=== PATIENT | female | born 1940 | race Caucasian/White ===

== ENCOUNTER → 2017-04-05 | Outpatient (CLI) | payer MEDICARE, OTHER ==
[~2017-04-05] MED LIST: ASPI81EC PO; CHOL10002 PO; CIPR500 PO; CYAN100T2 PO; Co Q-1010 MG PO; FAMO20 PO; Flomax0.4 MG PO; Ginkgo Biloba40 MG PO; HYDR1TAB94 PO; IBAN2.5 PO; LEVSOD50; LEVSOD50 PO; LEVSOD88 PO; LOVA20 PO; LOVA40 PO; METF500C PO; Micro-K10 MEQ PO; NEBI10 PO; NEBI5; NEBI5 PO; Norco 10-325 T1 EACH PO; OXYACE5T PO; Omeprazole20 M1 PO; PHENA200 PO; POTA10T PO; Percocet 5-3251 EACH PO; RISE35; SUCR1 PO; ZOLP5 PO; [UNRECOGNIZED DRUG - REMARK]
== END ==
LOC: LAB SHORT 08:13 → PLD 08:13
DX: D22.71 Melanocytic nevi of right lower limb, including hip (principal)
CPT/HCPCS: 88305

== ENCOUNTER → 2017-04-14 | Outpatient (CLI) | payer MEDICARE, OTHER | LOC: LAB SHORT 08:26 → PLD 08:26 | DX: D22.71 Melanocytic nevi of right lower limb, including hip (principal) | CPT/HCPCS: 88305 ==

== ENCOUNTER → 2018-04-13 | Outpatient (CLI) | payer MEDICARE, OTHER | END | disposition home or self-care (01) | LOC: LAB SHORT 11:28 → PLD 11:28 | DX: D48.5 Neoplasm of uncertain behavior of skin (principal) | CPT/HCPCS: 88305 ==

== ENCOUNTER 2018-08-29 07:09 | Day surgery (SDC) | payer MEDICARE, OTHER ==
[~2018-08-29] VITALS: Ht 154.9 cm; Wt 66.3 kg
[2018-08-29] MEDS ORDERED: Norco 10-325 T1 EACH PO (07:41)
--- NOTE | 2018-08-29 09:02 | NUR ---
08/29/18 0902 Rebecca Narayanan ATTEMPT ONLY WITH 50 PALOMO, 48 PALOMO USED.
== END 2018-08-29 09:25 | disposition home or self-care (01) ==
LOC: ORSCSDS 07:09
PROVIDERS: Internal Medicine Gastroenterology
PROC: 0DB58ZX Excision of Esophagus, Via Natural or Artificial Opening Endoscopic, Diagnostic (ICD-10-PCS; principal; 2018-08-29 08:45)
PROC: 0D758ZZ Dilation of Esophagus, Via Natural or Artificial Opening Endoscopic (ICD-10-PCS; principal; 2018-08-29 08:45)
DX: R13.10 Dysphagia, unspecified (principal); K21.9 Gastro-esophageal reflux disease without esophagitis; K44.9 Diaphragmatic hernia without obstruction or gangrene; K29.70 Gastritis, unspecified, without bleeding; E05.90 Thyrotoxicosis, unspecified without thyrotoxic crisis or storm; I48.91 Unspecified atrial fibrillation; E78.00 Pure hypercholesterolemia, unspecified; G47.30 Sleep apnea, unspecified; R73.03 Prediabetes; I10 Essential (primary) hypertension; E03.9 Hypothyroidism, unspecified; Z79.899 Other long term (current) drug therapy
CPT/HCPCS: 88305; 88342; J0330; J0461; J2405; J2704; J7120

== ENCOUNTER 2018-10-24 07:30 | Day surgery (SDC) | payer MEDICARE, OTHER | END 2018-10-24 23:00 | disposition home or self-care (01) | LOC: WOUND 07:30 | DX: S81.812D Laceration without foreign body, left lower leg, subsequent encounter (principal); I10 Essential (primary) hypertension; E03.9 Hypothyroidism, unspecified; E78.5 Hyperlipidemia, unspecified; D64.9 Anemia, unspecified; G47.33 Obstructive sleep apnea (adult) (pediatric); J45.909 Unspecified asthma, uncomplicated; W07.XXXA Fall from chair, initial encounter | CPT/HCPCS: G0463 ==

== ENCOUNTER 2018-10-31 00:22 | Day surgery (SDC) | payer MEDICARE, OTHER | END 2018-10-31 22:45 | disposition home or self-care (01) | LOC: WOUND 00:22 | DX: S81.812A Laceration without foreign body, left lower leg, initial encounter (principal); E03.9 Hypothyroidism, unspecified; E78.5 Hyperlipidemia, unspecified; G47.33 Obstructive sleep apnea (adult) (pediatric); I10 Essential (primary) hypertension; J45.909 Unspecified asthma, uncomplicated; M85.80 Other specified disorders of bone density and structure, unspecified site ==

== ENCOUNTER 2018-11-07 00:22 | Day surgery (SDC) | payer MEDICARE, OTHER | END 2018-11-07 23:25 | disposition home or self-care (01) | LOC: WOUND 00:22 | DX: T81.33XA Disruption of traumatic injury wound repair, initial encounter (principal); I10 Essential (primary) hypertension; G47.33 Obstructive sleep apnea (adult) (pediatric); X58.XXXA Exposure to other specified factors, initial encounter ==

== ENCOUNTER 2018-11-14 10:55 | Day surgery (SDC) | payer MEDICARE, OTHER | END 2018-11-14 22:47 | disposition home or self-care (01) | LOC: WOUND 10:55 | DX: S81.812A Laceration without foreign body, left lower leg, initial encounter (principal); I10 Essential (primary) hypertension; G47.33 Obstructive sleep apnea (adult) (pediatric) ==

== ENCOUNTER 2018-11-21 00:10 | Day surgery (SDC) | payer MEDICARE, OTHER | END 2018-11-21 23:02 | disposition home or self-care (01) | LOC: WOUND 00:10 | DX: S81.812A Laceration without foreign body, left lower leg, initial encounter (principal); E03.9 Hypothyroidism, unspecified; E55.9 Vitamin D deficiency, unspecified; E78.5 Hyperlipidemia, unspecified; I10 Essential (primary) hypertension ==

== ENCOUNTER 2018-11-24 00:42 | Day surgery (SDC) | payer MEDICARE, OTHER | END 2018-11-25 00:11 | disposition home or self-care (01) | LOC: WOUND 00:42 | DX: S81.812A Laceration without foreign body, left lower leg, initial encounter (principal); E03.9 Hypothyroidism, unspecified; E78.5 Hyperlipidemia, unspecified; G47.33 Obstructive sleep apnea (adult) (pediatric); J45.909 Unspecified asthma, uncomplicated; E53.8 Deficiency of other specified B group vitamins ==

== ENCOUNTER 2018-11-28 00:42 | Day surgery (SDC) | payer MEDICARE, OTHER | END 2018-11-28 22:41 | disposition home or self-care (01) | LOC: WOUND 00:42 | DX: S81.812A Laceration without foreign body, left lower leg, initial encounter (principal); E03.9 Hypothyroidism, unspecified; E78.5 Hyperlipidemia, unspecified; E59 Dietary selenium deficiency; E55.9 Vitamin D deficiency, unspecified; G47.33 Obstructive sleep apnea (adult) (pediatric); I10 Essential (primary) hypertension; J45.909 Unspecified asthma, uncomplicated ==

== ENCOUNTER 2018-11-29 11:20 | Day surgery (SDC) | payer MEDICARE, OTHER | END 2018-11-29 22:42 | disposition home or self-care (01) | LOC: WOUND 11:20 | DX: T81.33XA Disruption of traumatic injury wound repair, initial encounter (principal); S81.812D Laceration without foreign body, left lower leg, subsequent encounter; I10 Essential (primary) hypertension; G47.33 Obstructive sleep apnea (adult) (pediatric) ==

== ENCOUNTER 2018-12-01 02:23 | Day surgery (SDC) | payer MEDICARE, OTHER | END 2018-12-01 22:37 | disposition home or self-care (01) | LOC: WOUND 02:23 | DX: S81.812A Laceration without foreign body, left lower leg, initial encounter (principal); I10 Essential (primary) hypertension ==

== ENCOUNTER 2018-12-04 00:29 | Day surgery (SDC) | payer MEDICARE, OTHER | END 2018-12-04 22:50 | disposition home or self-care (01) | LOC: WOUND 00:29 | DX: S81.812A Laceration without foreign body, left lower leg, initial encounter (principal); I10 Essential (primary) hypertension; X58.XXXA Exposure to other specified factors, initial encounter ==

== ENCOUNTER 2018-12-06 07:51 | Day surgery (SDC) | payer MEDICARE, OTHER | END 2018-12-06 23:01 | disposition home or self-care (01) | LOC: WOUND 07:51 | DX: T81.33XA Disruption of traumatic injury wound repair, initial encounter (principal); I10 Essential (primary) hypertension ==

== ENCOUNTER 2018-12-08 10:03 | Day surgery (SDC) | payer MEDICARE, OTHER | END 2018-12-08 22:40 | disposition home or self-care (01) | LOC: WOUND 10:03 | DX: T81.33XA Disruption of traumatic injury wound repair, initial encounter (principal); I10 Essential (primary) hypertension ==

== ENCOUNTER 2018-12-11 00:20 | Day surgery (SDC) | payer MEDICARE, OTHER | END 2018-12-11 22:51 | disposition home or self-care (01) | LOC: WOUND 00:20 | DX: T81.33XA Disruption of traumatic injury wound repair, initial encounter (principal); I10 Essential (primary) hypertension ==

== ENCOUNTER 2018-12-13 07:55 | Day surgery (SDC) | payer OTHER, MEDICARE | END 2018-12-13 22:49 | disposition home or self-care (01) | LOC: WOUND 07:55 | DX: T81.33XA Disruption of traumatic injury wound repair, initial encounter (principal); S81.812D Laceration without foreign body, left lower leg, subsequent encounter; I10 Essential (primary) hypertension ==

== ENCOUNTER 2018-12-15 00:47 | Day surgery (SDC) | payer MEDICARE, OTHER | END 2018-12-15 23:23 | disposition home or self-care (01) | LOC: WOUND 00:47 | DX: S81.812D Laceration without foreign body, left lower leg, subsequent encounter (principal); I10 Essential (primary) hypertension; G47.33 Obstructive sleep apnea (adult) (pediatric); J45.909 Unspecified asthma, uncomplicated; E78.5 Hyperlipidemia, unspecified ==

== ENCOUNTER 2018-12-18 11:16 | Day surgery (SDC) | payer MEDICARE, OTHER | END 2018-12-18 23:02 | disposition home or self-care (01) | LOC: WOUND 11:16 | DX: S81.812A Laceration without foreign body, left lower leg, initial encounter (principal); E03.9 Hypothyroidism, unspecified; G47.33 Obstructive sleep apnea (adult) (pediatric); I10 Essential (primary) hypertension; M85.80 Other specified disorders of bone density and structure, unspecified site; J45.909 Unspecified asthma, uncomplicated ==

== ENCOUNTER 2018-12-20 00:11 | Day surgery (SDC) | payer OTHER, MEDICARE | END 2018-12-20 22:39 | disposition home or self-care (01) | LOC: WOUND 00:11 | DX: T81.31XA Disruption of external operation (surgical) wound, not elsewhere classified, initial encounter (principal); S81.812D Laceration without foreign body, left lower leg, subsequent encounter; I10 Essential (primary) hypertension ==

== ENCOUNTER 2018-12-22 01:18 | Day surgery (SDC) | payer MEDICARE, OTHER | END 2018-12-22 22:57 | disposition home or self-care (01) | LOC: WOUND 01:18 | DX: T81.33XA Disruption of traumatic injury wound repair, initial encounter (principal); I10 Essential (primary) hypertension ==

== ENCOUNTER 2018-12-25 00:26 | Day surgery (SDC) | payer MEDICARE, OTHER | END 2018-12-25 23:00 | disposition home or self-care (01) | LOC: WOUND 00:26 | DX: T81.33XA Disruption of traumatic injury wound repair, initial encounter (principal); S81.812D Laceration without foreign body, left lower leg, subsequent encounter; I10 Essential (primary) hypertension ==

== ENCOUNTER 2018-12-27 00:14 | Day surgery (SDC) | payer MEDICARE, OTHER | END 2018-12-27 23:05 | disposition home or self-care (01) | LOC: WOUND 00:14 | DX: T81.33XA Disruption of traumatic injury wound repair, initial encounter (principal); S81.812D Laceration without foreign body, left lower leg, subsequent encounter; I10 Essential (primary) hypertension | CPT/HCPCS: G0463 ==

== ENCOUNTER 2019-01-01 08:22 | Day surgery (SDC) | payer MEDICARE, OTHER | END 2019-01-01 22:41 | disposition home or self-care (01) | LOC: WOUND 08:22 | DX: S81.812D Laceration without foreign body, left lower leg, subsequent encounter (principal); E03.9 Hypothyroidism, unspecified; E78.5 Hyperlipidemia, unspecified; G47.33 Obstructive sleep apnea (adult) (pediatric); I10 Essential (primary) hypertension; J45.909 Unspecified asthma, uncomplicated | CPT/HCPCS: G0463 ==

== ENCOUNTER 2019-01-05 00:08 | Day surgery (SDC) | payer MEDICARE, OTHER | END 2019-01-05 23:46 | disposition home or self-care (01) | LOC: WOUND 00:08 | DX: S81.812D Laceration without foreign body, left lower leg, subsequent encounter (principal); E03.9 Hypothyroidism, unspecified; E78.5 Hyperlipidemia, unspecified; G47.33 Obstructive sleep apnea (adult) (pediatric); E55.9 Vitamin D deficiency, unspecified; E53.8 Deficiency of other specified B group vitamins; I10 Essential (primary) hypertension; J45.909 Unspecified asthma, uncomplicated; Q76.2 Congenital spondylolisthesis; L30.9 Dermatitis, unspecified | CPT/HCPCS: G0463 ==

== ENCOUNTER 2019-01-08 00:27 | Day surgery (SDC) | payer MEDICARE, OTHER | END 2019-01-08 23:18 | disposition home or self-care (01) | LOC: WOUND 00:27 | DX: S81.812D Laceration without foreign body, left lower leg, subsequent encounter (principal); L30.9 Dermatitis, unspecified; E03.9 Hypothyroidism, unspecified; E78.5 Hyperlipidemia, unspecified; G47.33 Obstructive sleep apnea (adult) (pediatric); I10 Essential (primary) hypertension; J45.909 Unspecified asthma, uncomplicated | CPT/HCPCS: G0463 ==

== ENCOUNTER 2019-01-10 07:59 | Day surgery (SDC) | payer MEDICARE, OTHER | END 2019-01-10 22:39 | disposition home or self-care (01) | LOC: WOUND 07:59 | DX: T81.33XA Disruption of traumatic injury wound repair, initial encounter (principal); S81.812D Laceration without foreign body, left lower leg, subsequent encounter; I10 Essential (primary) hypertension | CPT/HCPCS: G0463 ==

== ENCOUNTER 2019-01-17 00:18 | Day surgery (SDC) | payer MEDICARE, OTHER | END 2019-01-17 23:01 | disposition home or self-care (01) | LOC: WOUND 00:18 | DX: T81.33XA Disruption of traumatic injury wound repair, initial encounter (principal); S81.812D Laceration without foreign body, left lower leg, subsequent encounter; I10 Essential (primary) hypertension | CPT/HCPCS: G0463 ==

== ENCOUNTER 2019-01-24 00:34 | Day surgery (SDC) | payer MEDICARE, OTHER | END 2019-01-24 22:38 | disposition home or self-care (01) | LOC: WOUND 00:34 | DX: S81.812D Laceration without foreign body, left lower leg, subsequent encounter (principal); I10 Essential (primary) hypertension; J45.909 Unspecified asthma, uncomplicated; G47.33 Obstructive sleep apnea (adult) (pediatric); E78.5 Hyperlipidemia, unspecified; E03.9 Hypothyroidism, unspecified; Z79.899 Other long term (current) drug therapy | CPT/HCPCS: G0463 ==

== ENCOUNTER → 2019-02-06 | Outpatient (CLI) | payer MEDICARE, OTHER ==
[2019-02-07 13:07] LABS: HPV 16 Negative (Negative); HPV 18 Negative (Negative); HPV OTHER HR TYPES Negative (Negative)
== END | disposition home or self-care (01) ==
LOC: LAB SHORT 10:35 → LAB 10:35
PROVIDERS: Obstetrics & Gynecology Gynecology
DX: Z91.89 Other specified personal risk factors, not elsewhere classified (principal)
CPT/HCPCS: 87624; G0123

== ENCOUNTER 2019-05-23 11:06 | Emergency (ER) | payer MEDICARE, OTHER ==
[~2019-05-23] VITALS: Ht 154.9 cm; Wt 65.8 kg
[2019-05-23] MEDS ORDERED: LEVSOD50 PO (11:42)
[2019-05-23] MEDS ORDERED: OMEP20ER PO (11:42)
[2019-05-23] MEDS ORDERED: Norco 10-325 T1 EACH (11:42)
[2019-05-23] MEDS ORDERED: LOVA40 PO (11:42)
[2019-05-23] MEDS ORDERED: POTA10T PO (11:42)
[2019-05-23] MEDS ORDERED: NEBI10 PO (11:42)
== END 2019-05-23 12:25 | disposition home or self-care (01) ==
LOC: ER 11:06
DX: S81.812A Laceration without foreign body, left lower leg, initial encounter (principal); E11.9 Type 2 diabetes mellitus without complications; E03.9 Hypothyroidism, unspecified; E78.5 Hyperlipidemia, unspecified; K21.9 Gastro-esophageal reflux disease without esophagitis; M41.9 Scoliosis, unspecified; G47.30 Sleep apnea, unspecified; Z88.0 Allergy status to penicillin; Z88.2 Allergy status to sulfonamides; Z88.8 Allergy status to other drugs, medicaments and biological substances; W20.8XXA Other cause of strike by thrown, projected or falling object, initial encounter
CPT/HCPCS: 99282

== ENCOUNTER → 2019-05-25 | Outpatient (CLI) | payer MEDICARE, OTHER ==
[~2019-05-25] MED LIST changes: +Norco 10-325 T1 EACH; +OMEP20ER PO
== END ==
LOC: LAB EV 09:51 → LAB SHORT 09:51
DX: T14.8XXA Other injury of unspecified body region, initial encounter (principal)
CPT/HCPCS: 87070; 87205

== ENCOUNTER 2019-05-28 10:48 | Day surgery (SDC) | payer MEDICARE, OTHER | END 2019-05-28 22:44 | disposition home or self-care (01) | LOC: WOUND 10:48 | DX: S81.802A Unspecified open wound, left lower leg, initial encounter (principal); E03.9 Hypothyroidism, unspecified; E78.5 Hyperlipidemia, unspecified; I10 Essential (primary) hypertension; G47.33 Obstructive sleep apnea (adult) (pediatric); J45.909 Unspecified asthma, uncomplicated; Q76.2 Congenital spondylolisthesis; X58.XXXA Exposure to other specified factors, initial encounter; Z88.2 Allergy status to sulfonamides; Z88.0 Allergy status to penicillin; Z88.8 Allergy status to other drugs, medicaments and biological substances; Z88.1 Allergy status to other antibiotic agents | CPT/HCPCS: G0463 ==

== ENCOUNTER 2019-06-05 00:12 | Day surgery (SDC) | payer MEDICARE, OTHER | END 2019-06-05 22:48 | disposition home or self-care (01) | LOC: WOUND 00:12 | DX: S81.802D Unspecified open wound, left lower leg, subsequent encounter (principal); E03.9 Hypothyroidism, unspecified; E78.5 Hyperlipidemia, unspecified; G47.33 Obstructive sleep apnea (adult) (pediatric); I10 Essential (primary) hypertension; J45.909 Unspecified asthma, uncomplicated; Z79.899 Other long term (current) drug therapy ==

== ENCOUNTER 2019-06-12 00:25 | Day surgery (SDC) | payer MEDICARE, OTHER | END 2019-06-12 22:47 | disposition home or self-care (01) | LOC: WOUND 00:25 | DX: S81.812D Laceration without foreign body, left lower leg, subsequent encounter (principal); I10 Essential (primary) hypertension ==

== ENCOUNTER 2019-06-26 00:06 | Day surgery (SDC) | payer MEDICARE, OTHER | END 2019-06-26 22:48 | disposition home or self-care (01) | LOC: WOUND 00:06 | DX: S81.802D Unspecified open wound, left lower leg, subsequent encounter (principal); I10 Essential (primary) hypertension; G47.33 Obstructive sleep apnea (adult) (pediatric); J45.909 Unspecified asthma, uncomplicated | CPT/HCPCS: G0463 ==

== ENCOUNTER → 2019-10-16 | Outpatient (CLI) | payer MEDICARE, OTHER ==
[~2019-10-16] MED LIST changes: +Aspir 8181 MG PO; +Cipro500 MG PO; +DICLOFENAC SOD100 G1 TOP; +HYDACE10B PO; +LEVSOD75 PO; +LOSA25; +LOSA25 PO; +Pyridium100 MG PO
[2019-10-16 15:57] LABS: Source, Urine Clean Catch
[2019-10-16 16:03] LABS: Appearance, Urine Clear (Clear); Bilirubin, Urine Neg (Neg); Blood, Urine Neg (Neg); Color, Urine Yellow (P-Yellow); Glucose Qualitative, Urine Neg (Normal); Ketones, Urine Neg (Neg); Leukocyte Esterase, Urine Neg (Neg); Nitrite, Urine Neg (Neg); Protein, Urine Neg (Neg); Urobilinogen, Urine NORM (Normal); pH, Urine 6.5 (5.0-8.0)
== END | disposition home or self-care (01) ==
LOC: LAB SHORT 15:25 → LAB EV 15:25
PROVIDERS: Physician Assistant
DX: R30.9 Painful micturition, unspecified (principal)
CPT/HCPCS: 81003

== ENCOUNTER 2019-11-08 11:09 | Day surgery (SDC) | payer MEDICARE, OTHER ==
[~2019-11-08] VITALS: Ht 154.9 cm; Wt 62.0 kg
[~2019-11-08 11:09] MED LIST changes: -Aspir 8181 MG PO
[2019-11-09 04:28] LABS: BASOPHILS ABSOLUTE AUTO 0.03 K/mm3 (0.00-0.23); BASOPHILS PERCENT AUTO 0 % (0-2); EOSINOPHILS ABSOLUTE AUTO 0.15 K/mm3 (0.00-0.68); EOSINOPHILS PERCENT AUTO 2 % (0-6); Hematocrit 26.1 % (33.0-51.0); Hemoglobin 8.4 g/dL (11.5-16.0); IMMATURE GRAN ABSOLUTE AUTO 0.02 K/mm3 (0.00-0.10); IMMATURE GRAN PERCENT AUTO 0 % (0-1); LYMPHOCYTES ABSOLUTE AUTO 1.31 K/mm3 (0.84-5.20); LYMPHOCYTES PERCENT AUTO 13 % (21-46); MONOCYTES ABSOLUTE AUTO 0.73 K/mm3 (0.16-1.47); MONOCYTES PERCENT AUTO 7 % (4-13); Mean Corpuscular HGB 29.8 pg (26.0-34.0); Mean Corpuscular HGB Conc 32.2 g/dL (31.5-36.5); Mean Corpuscular Volume 93 fL (80-100); NEUTROPHILS ABSOLUTE AUTO 7.75 K/mm3 (1.96-9.15); NEUTROPHILS PERCENT AUTO 78 % (41-73); Platelet Count 243 K/mm3 (150-400); RDW Coefficient Variation 14.6 % (11.7-14.2); RDW Standard Deviation 49.7 fL (35.1-46.3); Red Blood Cell Count 2.82 M/mm3 (3.80-5.20); White Blood Cell Count 9.99 K/mm3 (4.00-11.30)
[2019-11-09 04:53] LABS: Anion Gap 4 mmol/L (6-16); Blood Urea Nitrogen 12 mg/dL (8-24); Bun/Creatinine Ratio 14.5 (12.0-20.0); CO2, Blood 25 mmol/L (21-32); Calcium, Blood 7.5 mg/dL (8.5-10.1); Chloride, Blood 105 mmol/L (98-108); Creatinine, Blood 0.83 mg/dL (0.40-1.00); Glomerular Filtration Rate >60 (60-); Glucose, Blood 92 mg/dL (70-99); Magnesium, Blood 1.8 mg/dL (1.6-2.4); Sodium, Blood 134 mmol/L (136-145)
[2019-11-09] MEDS ORDERED: Percocet 5-3251 EACH PO (10:23)
[2019-11-09] MEDS ORDERED: Aspir 8181 MG PO (10:24)
== END 2019-11-09 11:30 | disposition home or self-care (01) ==
LOC: ORSCMMR 11:09 → PRE IP 12:30 → EDSTATUS 12:30 → SURS 15:50 → ORSCMMR 11-09 11:30
PROVIDERS: Orthopaedic Surgery
DX: M87.251 Osteonecrosis due to previous trauma, right femur (principal); M16.11 Unilateral primary osteoarthritis, right hip; K21.9 Gastro-esophageal reflux disease without esophagitis; E78.00 Pure hypercholesterolemia, unspecified; E05.90 Thyrotoxicosis, unspecified without thyrotoxic crisis or storm; Z79.899 Other long term (current) drug therapy; Z79.891 Long term (current) use of opiate analgesic; Z88.0 Allergy status to penicillin; Z88.2 Allergy status to sulfonamides; Z88.8 Allergy status to other drugs, medicaments and biological substances; Z88.1 Allergy status to other antibiotic agents
CPT/HCPCS: 36415; 72170; 80048; 83735; 85025; 88300; 94762; 97110; 97116; 97161; A9270-GY; C1713; C1776; J0171; J0735; J1170; J1885; J2250; J2370; J2704; J2795; J3010; J7030; J7120

== ENCOUNTER 2019-12-25 10:03 | Emergency (ER) | payer MEDICARE, OTHER ==
[~2019-12-25] VITALS: Ht 154.9 cm; Wt 61.2 kg
[~2019-12-25 10:03] MED LIST changes: +Aspir 8181 MG PO
== END 2019-12-25 11:12 | disposition home or self-care (01) ==
LOC: ER 10:03
DX: S81.811A Laceration without foreign body, right lower leg, initial encounter (principal); E11.9 Type 2 diabetes mellitus without complications; K21.9 Gastro-esophageal reflux disease without esophagitis; E03.9 Hypothyroidism, unspecified; E78.5 Hyperlipidemia, unspecified; Z88.2 Allergy status to sulfonamides; Z88.0 Allergy status to penicillin; Z79.899 Other long term (current) drug therapy; Z79.82 Long term (current) use of aspirin; V48.4XXA Person boarding or alighting a car injured in noncollision transport accident, initial encounter
CPT/HCPCS: 99282

== ENCOUNTER → 2019-12-27 | Outpatient (CLI) | payer MEDICARE, OTHER | END | disposition home or self-care (01) | LOC: LAB EV 13:39 → LAB SHORT 13:39 | DX: L03.115 Cellulitis of right lower limb (principal) | CPT/HCPCS: 87070; 87075; 87205 ==

== ENCOUNTER 2020-01-04 01:59 | Day surgery (SDC) | payer MEDICARE, OTHER | END 2020-01-04 22:35 | disposition home or self-care (01) | LOC: WOUND 01:59 | DX: S81.801A Unspecified open wound, right lower leg, initial encounter (principal); E78.5 Hyperlipidemia, unspecified; I10 Essential (primary) hypertension; J45.909 Unspecified asthma, uncomplicated; G47.33 Obstructive sleep apnea (adult) (pediatric); Z88.0 Allergy status to penicillin; Z88.2 Allergy status to sulfonamides; Z88.8 Allergy status to other drugs, medicaments and biological substances; Z88.1 Allergy status to other antibiotic agents; Z79.899 Other long term (current) drug therapy; Z79.82 Long term (current) use of aspirin | CPT/HCPCS: G0463 ==

== ENCOUNTER 2020-01-11 01:59 | Day surgery (SDC) | payer MEDICARE, OTHER | END 2020-01-11 22:41 | disposition home or self-care (01) | LOC: WOUND 01:59 | DX: S81.801A Unspecified open wound, right lower leg, initial encounter (principal); E03.9 Hypothyroidism, unspecified; I10 Essential (primary) hypertension; J45.909 Unspecified asthma, uncomplicated; G47.33 Obstructive sleep apnea (adult) (pediatric); E78.5 Hyperlipidemia, unspecified; Z79.899 Other long term (current) drug therapy; Z79.82 Long term (current) use of aspirin; X58.XXXA Exposure to other specified factors, initial encounter ==

== ENCOUNTER 2020-01-17 00:43 | Day surgery (SDC) | payer MEDICARE, OTHER | END 2020-01-17 12:00 | disposition home or self-care (01) | LOC: WOUND 00:43 | DX: S81.801A Unspecified open wound, right lower leg, initial encounter (principal); I96 Gangrene, not elsewhere classified; E03.9 Hypothyroidism, unspecified; I10 Essential (primary) hypertension; E55.9 Vitamin D deficiency, unspecified; E78.5 Hyperlipidemia, unspecified; D51.9 Vitamin B12 deficiency anemia, unspecified; G47.33 Obstructive sleep apnea (adult) (pediatric); J45.909 Unspecified asthma, uncomplicated; H26.9 Unspecified cataract; H40.9 Unspecified glaucoma; I49.9 Cardiac arrhythmia, unspecified; G62.9 Polyneuropathy, unspecified; F41.8 Other specified anxiety disorders; Z96.641 Presence of right artificial hip joint; Z88.0 Allergy status to penicillin; Z88.1 Allergy status to other antibiotic agents; Z88.2 Allergy status to sulfonamides; Z88.8 Allergy status to other drugs, medicaments and biological substances; Z79.82 Long term (current) use of aspirin; Z79.899 Other long term (current) drug therapy; X58.XXXA Exposure to other specified factors, initial encounter ==

== ENCOUNTER 2020-01-31 08:31 | Day surgery (SDC) | payer MEDICARE, OTHER | END 2020-01-31 23:34 | disposition home or self-care (01) | LOC: WOUND 08:31 | DX: S81.801A Unspecified open wound, right lower leg, initial encounter (principal); I10 Essential (primary) hypertension; E78.5 Hyperlipidemia, unspecified; J45.909 Unspecified asthma, uncomplicated; E03.9 Hypothyroidism, unspecified; G47.33 Obstructive sleep apnea (adult) (pediatric); Z79.899 Other long term (current) drug therapy ==

== ENCOUNTER 2020-02-14 00:15 | Day surgery (SDC) | payer MEDICARE, OTHER | END 2020-02-14 22:50 | disposition home or self-care (01) | LOC: WOUND 00:15 | DX: S81.801D Unspecified open wound, right lower leg, subsequent encounter (principal); E78.5 Hyperlipidemia, unspecified; J45.909 Unspecified asthma, uncomplicated; I10 Essential (primary) hypertension; G47.33 Obstructive sleep apnea (adult) (pediatric); Z79.899 Other long term (current) drug therapy ==

== ENCOUNTER 2020-02-26 00:23 | Day surgery (SDC) | payer MEDICARE, OTHER | END 2020-02-26 22:57 | disposition home or self-care (01) | LOC: WOUND 00:23 | DX: S81.801D Unspecified open wound, right lower leg, subsequent encounter (principal); H26.9 Unspecified cataract; H40.9 Unspecified glaucoma; D64.9 Anemia, unspecified; J45.909 Unspecified asthma, uncomplicated; G47.30 Sleep apnea, unspecified; I49.9 Cardiac arrhythmia, unspecified; I10 Essential (primary) hypertension; E07.9 Disorder of thyroid, unspecified; M19.90 Unspecified osteoarthritis, unspecified site; G62.9 Polyneuropathy, unspecified; F41.8 Other specified anxiety disorders; I73.00 Raynaud's syndrome without gangrene; Z79.82 Long term (current) use of aspirin; Z79.899 Other long term (current) drug therapy; Z88.0 Allergy status to penicillin; Z88.1 Allergy status to other antibiotic agents; Z88.2 Allergy status to sulfonamides; Z88.8 Allergy status to other drugs, medicaments and biological substances; Z96.641 Presence of right artificial hip joint; X58.XXXD Exposure to other specified factors, subsequent encounter | CPT/HCPCS: G0463 ==

== ENCOUNTER 2020-03-12 00:23 | Day surgery (SDC) | payer MEDICARE, OTHER | END 2020-03-12 22:46 | disposition home or self-care (01) | LOC: WOUND 00:23 | DX: S80.811D Abrasion, right lower leg, subsequent encounter (principal); E03.9 Hypothyroidism, unspecified; E55.9 Vitamin D deficiency, unspecified; E78.5 Hyperlipidemia, unspecified; G47.33 Obstructive sleep apnea (adult) (pediatric); I10 Essential (primary) hypertension; J45.909 Unspecified asthma, uncomplicated; H26.9 Unspecified cataract; D64.9 Anemia, unspecified; I49.9 Cardiac arrhythmia, unspecified; M19.90 Unspecified osteoarthritis, unspecified site; G62.9 Polyneuropathy, unspecified; F41.8 Other specified anxiety disorders; Z96.641 Presence of right artificial hip joint; Z79.82 Long term (current) use of aspirin; Z79.899 Other long term (current) drug therapy; Z88.0 Allergy status to penicillin; Z88.8 Allergy status to other drugs, medicaments and biological substances; Z88.1 Allergy status to other antibiotic agents; Z88.2 Allergy status to sulfonamides; X58.XXXD Exposure to other specified factors, subsequent encounter | CPT/HCPCS: G0463 ==

== ENCOUNTER 2020-07-16 07:44 | Day surgery (SDC) | payer MEDICARE, OTHER ==
[~2020-07-16] VITALS: Ht 154.9 cm; Wt 62.4 kg
[~2020-07-16 07:44] MED LIST changes: +B-100 COMPLEX100 MG PO; +Bystolic10 MG PO; +CARAC30 G2; +Estrace Vagin42.5 GM; +LEVO-T50 MCG PO; +LOSARTAN POTAS100 M1 PO; +MELO7.5 PO; +MIRALAX17 GM PO; +NORVASC2.5 MG PO; +THERA-D2000 UNIT PO; +TRAM50 PO
== END 2020-07-16 09:37 | disposition home or self-care (01) ==
LOC: ORSCSDS 07:44
PROVIDERS: Internal Medicine Gastroenterology
PROC: 0DB98ZX Excision of Duodenum, Via Natural or Artificial Opening Endoscopic, Diagnostic (ICD-10-PCS; principal; 2020-07-16 09:00)
PROC: 0DB68ZX Excision of Stomach, Via Natural or Artificial Opening Endoscopic, Diagnostic (ICD-10-PCS; principal; 2020-07-16 09:00)
PROC: 0D758ZZ Dilation of Esophagus, Via Natural or Artificial Opening Endoscopic (ICD-10-PCS; principal; 2020-07-16 09:00)
DX: R13.10 Dysphagia, unspecified (principal); D64.9 Anemia, unspecified; K21.9 Gastro-esophageal reflux disease without esophagitis; K22.2 Esophageal obstruction; K44.9 Diaphragmatic hernia without obstruction or gangrene; I10 Essential (primary) hypertension; J45.909 Unspecified asthma, uncomplicated; Z79.899 Other long term (current) drug therapy
CPT/HCPCS: 88305; 88342; J2704; J7120

== ENCOUNTER 2022-04-29 08:33 | Day surgery (SDC) | payer MEDICARE, OTHER ==
[~2022-04-29] VITALS: Ht 154.9 cm; Wt 62.9 kg
== END 2022-04-29 11:00 | disposition home or self-care (01) ==
LOC: ORSCSDS 08:33
PROVIDERS: Student in an Organized Health Care Education/Training Program
PROC: 0DB58ZX Excision of Esophagus, Via Natural or Artificial Opening Endoscopic, Diagnostic (ICD-10-PCS; principal; 2022-04-29 10:15)
DX: R13.10 Dysphagia, unspecified (principal); K44.9 Diaphragmatic hernia without obstruction or gangrene; K21.9 Gastro-esophageal reflux disease without esophagitis; E11.9 Type 2 diabetes mellitus without complications; I10 Essential (primary) hypertension; E78.5 Hyperlipidemia, unspecified; E03.9 Hypothyroidism, unspecified; G47.33 Obstructive sleep apnea (adult) (pediatric); K22.89 Other specified disease of esophagus; Z79.899 Other long term (current) drug therapy
CPT/HCPCS: 82947; 88305; J2704; J7120

== ENCOUNTER 2022-07-07 08:10 | Emergency (ER) | payer MEDICARE, OTHER ==
[~2022-07-07] VITALS: Ht 154.9 cm; Wt 62.6 kg
[2022-07-07 08:53] LABS: BASOPHILS ABSOLUTE AUTO 0.03 K/mm3 (0.00-0.23); BASOPHILS PERCENT AUTO 0 % (0-2); EOSINOPHILS ABSOLUTE AUTO 0.05 K/mm3 (0.00-0.68); EOSINOPHILS PERCENT AUTO 1 % (0-6); Hematocrit 37.3 % (33.0-51.0); Hemoglobin 12.3 g/dL (11.5-16.0); IMMATURE GRAN ABSOLUTE AUTO 0.02 K/mm3 (0.00-0.10); IMMATURE GRAN PERCENT AUTO 0 % (0-1); LYMPHOCYTES ABSOLUTE AUTO 2.71 K/mm3 (0.84-5.20); LYMPHOCYTES PERCENT AUTO 31 % (21-46); MONOCYTES ABSOLUTE AUTO 0.52 K/mm3 (0.16-1.47); MONOCYTES PERCENT AUTO 6 % (4-13); Mean Corpuscular HGB 29.4 pg (26.0-34.0); Mean Corpuscular Volume 89 fL (80-100); NEUTROPHILS ABSOLUTE AUTO 5.54 K/mm3 (1.96-9.15); NEUTROPHILS PERCENT AUTO 62 % (41-73); Platelet Count 286 K/mm3 (150-400); RDW Coefficient Variation 13.1 % (11.7-14.2); RDW Standard Deviation 43.2 fL (35.1-46.3); Red Blood Cell Count 4.19 M/mm3 (3.80-5.20); White Blood Cell Count 8.87 K/mm3 (4.00-11.30)
[2022-07-07 09:16] LABS: Albumin, Blood 3.9 g/dL (3.4-5.0); Albumin/Globulin Ratio 1.1 (0.8-1.8); Bilirubin, Total 0.3 mg/dL (0.1-1.0); Creatinine, Blood 0.84 mg/dL (0.40-1.00); Globulin, Blood 3.7 g/dL (2.2-4.0); Potassium, Blood 3.7 mmol/L (3.5-5.5); Total Protein, Blood 7.6 g/dL (6.4-8.2)
== END 2022-07-07 10:31 | disposition home or self-care (01) ==
LOC: ER 08:10
PROVIDERS: Physician Assistant
DX: R07.9 Chest pain, unspecified (principal); E11.9 Type 2 diabetes mellitus without complications; K21.9 Gastro-esophageal reflux disease without esophagitis; E03.9 Hypothyroidism, unspecified; E78.5 Hyperlipidemia, unspecified; Z88.0 Allergy status to penicillin; Z88.2 Allergy status to sulfonamides; Z88.8 Allergy status to other drugs, medicaments and biological substances; Z88.1 Allergy status to other antibiotic agents; Z91.040 Latex allergy status; Z79.899 Other long term (current) drug therapy
CPT/HCPCS: 36415; 71046; 80053; 83880; 84484; 85025; 93005; 93010; 99285-25; A9270

== ENCOUNTER → 2022-10-26 | Outpatient (CLI) | payer MEDICARE, OTHER ==
[2022-10-26 15:53] LABS: Magnesium, Blood 2.2 mg/dL (1.6-2.4)
[2022-10-26 15:58] LABS: Bun/Creatinine Ratio 22.6 (12.0-20.0); Creatinine, Blood 0.8 mg/dL (0.40-1.00); Potassium, Blood 3.7 mmol/L (3.5-5.5); Thyroid Stimulating Hormone 0.96 uIU/mL (0.360-4.800)
== END | disposition home or self-care (01) ==
LOC: LAB SHORT 13:55 → LAB 13:55
PROVIDERS: Internal Medicine Cardiovascular Disease
DX: I10 Essential (primary) hypertension (principal); R06.02 Shortness of breath
CPT/HCPCS: 80048; 83735; 83880; 84443

== ENCOUNTER → 2023-09-05 | Outpatient (CLI) | payer MEDICARE, OTHER ==
[2023-09-05 10:45] LABS: Protein, Urine Quantitative 5.4 mg/dL (0.0-11.9)
[2023-09-05 10:52] LABS: Microalbumin, Urine Quant. <5.000 mg/L (0.000-20.000)
== END ==
LOC: LAB 03:58 → LAB SHORT 03:58
PROVIDERS: Internal Medicine Nephrology
DX: N18.30 Chronic kidney disease, stage 3 unspecified (principal); N25.81 Secondary hyperparathyroidism of renal origin; E55.9 Vitamin D deficiency, unspecified; E78.00 Pure hypercholesterolemia, unspecified; R76.9 Abnormal immunological finding in serum, unspecified; R94.5 Abnormal results of liver function studies; R94.6 Abnormal results of thyroid function studies; G60.9 Hereditary and idiopathic neuropathy, unspecified; D51.8 Other vitamin B12 deficiency anemias; D52.8 Other folate deficiency anemias; D50.9 Iron deficiency anemia, unspecified
CPT/HCPCS: 81050; 82043; 82570; 84156

== ENCOUNTER 2024-11-13 11:53 | Emergency (ER) | payer MEDICARE, OTHER ==
[~2024-11-13] VITALS: Ht 152.4 cm; Wt 66.7 kg
[2024-11-13] MEDS ORDERED: ACET500 PO (14:17)
[2024-11-13 14:36] VITALS: BP 126/59
== END 2024-11-13 14:42 | disposition home or self-care (01) ==
LOC: ER 11:53
DX: M25.511 Pain in right shoulder (principal); M25.561 Pain in right knee; E11.22 Type 2 diabetes mellitus with diabetic chronic kidney disease; N18.9 Chronic kidney disease, unspecified; E03.9 Hypothyroidism, unspecified; E78.5 Hyperlipidemia, unspecified; K21.9 Gastro-esophageal reflux disease without esophagitis; G47.30 Sleep apnea, unspecified; Z96.643 Presence of artificial hip joint, bilateral; Z96.651 Presence of right artificial knee joint; Z91.81 History of falling; Z88.0 Allergy status to penicillin; Z88.2 Allergy status to sulfonamides; Z88.1 Allergy status to other antibiotic agents; Z88.8 Allergy status to other drugs, medicaments and biological substances; Z91.040 Latex allergy status; Z79.01 Long term (current) use of anticoagulants; Z79.890 Hormone replacement therapy; Z79.1 Long term (current) use of non-steroidal anti-inflammatories (NSAID); Z79.899 Other long term (current) drug therapy
CPT/HCPCS: 73030; 73502; 73562-RT; 93005; 93010; 99284-25; A6590

== ENCOUNTER 2025-01-29 00:42 | Day surgery (SDC) | payer MEDICARE, OTHER ==
[~2025-01-29 00:42] MED LIST changes: +ACET500 PO
== END 2025-01-29 23:00 | disposition home or self-care (01) ==
LOC: WOUND 00:42
DX: T81.31XD Disruption of external operation (surgical) wound, not elsewhere classified, subsequent encounter (principal); I10 Essential (primary) hypertension; E03.9 Hypothyroidism, unspecified; E78.5 Hyperlipidemia, unspecified; G47.33 Obstructive sleep apnea (adult) (pediatric); Q76.2 Congenital spondylolisthesis; I73.9 Peripheral vascular disease, unspecified; Z88.0 Allergy status to penicillin; Z88.2 Allergy status to sulfonamides; Z88.8 Allergy status to other drugs, medicaments and biological substances; Z88.1 Allergy status to other antibiotic agents; Z90.49 Acquired absence of other specified parts of digestive tract
CPT/HCPCS: G0463

== ENCOUNTER 2025-02-04 00:18 | Day surgery (SDC) | payer MEDICARE, OTHER ==
[2025-02-04] MEDS ORDERED: Lidocaine HCl 4% Cream 5 GM ONE (08:37)
== END 2025-02-04 23:01 | disposition home or self-care (01) ==
LOC: WOUND 00:18
DX: T81.31XD Disruption of external operation (surgical) wound, not elsewhere classified, subsequent encounter (principal); E03.9 Hypothyroidism, unspecified; E78.5 Hyperlipidemia, unspecified; I10 Essential (primary) hypertension; G47.33 Obstructive sleep apnea (adult) (pediatric); J45.909 Unspecified asthma, uncomplicated; M85.80 Other specified disorders of bone density and structure, unspecified site; Q76.2 Congenital spondylolisthesis
CPT/HCPCS: A9270; G0463

== ENCOUNTER 2025-02-11 00:46 | Day surgery (SDC) | payer MEDICARE, OTHER ==
[2025-02-11] MEDS ORDERED: Lidocaine HCl 4% Cream 5 GM ONE (08:56)
== END 2025-02-11 22:00 | disposition home or self-care (01) ==
LOC: WOUND 00:46
DX: T81.31XD Disruption of external operation (surgical) wound, not elsewhere classified, subsequent encounter (principal); I25.10 Atherosclerotic heart disease of native coronary artery without angina pectoris; I10 Essential (primary) hypertension; E78.5 Hyperlipidemia, unspecified
CPT/HCPCS: A6196; A9270; G0463

== ENCOUNTER 2025-02-18 00:30 | Day surgery (SDC) | payer MEDICARE, OTHER | END 2025-02-18 23:00 | disposition home or self-care (01) | LOC: WOUND 00:30 | DX: T81.31XD Disruption of external operation (surgical) wound, not elsewhere classified, subsequent encounter (principal); Q76.2 Congenital spondylolisthesis; I10 Essential (primary) hypertension; G47.33 Obstructive sleep apnea (adult) (pediatric); E78.5 Hyperlipidemia, unspecified; E03.9 Hypothyroidism, unspecified; I25.10 Atherosclerotic heart disease of native coronary artery without angina pectoris | CPT/HCPCS: G0463 ==

== ENCOUNTER 2025-03-04 02:33 | Day surgery (SDC) | payer MEDICARE, OTHER | END 2025-03-04 23:57 | disposition home or self-care (01) | LOC: WOUND 02:33 | DX: T81.31XD Disruption of external operation (surgical) wound, not elsewhere classified, subsequent encounter (principal); I10 Essential (primary) hypertension; G47.33 Obstructive sleep apnea (adult) (pediatric); J45.909 Unspecified asthma, uncomplicated; E78.5 Hyperlipidemia, unspecified; E03.9 Hypothyroidism, unspecified; Q76.2 Congenital spondylolisthesis; I25.10 Atherosclerotic heart disease of native coronary artery without angina pectoris; Z87.828 Personal history of other (healed) physical injury and trauma | CPT/HCPCS: G0463 ==